=== PATIENT | female | born 1965 | race Caucasian/White ===

== ENCOUNTER 2017-05-13 12:31 | Emergency (ER) | payer OTHER ==
[~2017-05-13] VITALS: Ht 154.9 cm; Wt 122.5 kg
[2017-05-13 13:05] VITALS: BP 157/96
[2017-05-13] MEDS ORDERED: Proparacaine 0.5% Opth Soln 15ml BOTH EYES ONE (13:15)
[2017-05-13] MEDS ORDERED: Fluorescein Strips RIGHT EYE ONE (13:15)
[2017-05-13 13:40] VITALS: BP 138/89
--- NOTE | 2017-05-13 21:53 | Emergency Room Report ---
History of Present Illness General Chief Complaint: Eye Problems Source: Patient Present Illness HPI The patient is a 51-year-old female presenting for possible right eye injury. She states that she was closing a window when a metal piece struck her upper eyelid. She denies any pain at this time but is presenting for assessment. She denies any blurred vision or dizziness. She was not wearing corrective lenses. She denies any other symptoms Allergies: Coded Allergies: No Known Allergies (Unverified , 05/13/17) Patient History Past Medical History: see triage record Pertinent Family History: none Reviewed Nursing Documentation: PMH: Agreed, PSxH: Agreed Nursing Documentation-PMH Hx Hypertension: Yes Hx Asthma: Yes Review of Systems All Other Systems: negative except mentioned in HPI Physical Exam Vital Signs Date Time Temp Pulse Resp B/P (MAP) Pulse Ox O2 Delivery O2 Flow Rate FiO2 05/13/17 12:56 98.2 73 18 157/96 97 Room Air Sp02 EP Interpretation: reviewed, normal General Appearance: no apparent distress, alert, GCS 15, non-toxic Head: normocephalic, atraumatic Eyes: bilateral eye normal inspection, bilateral eye PERRL, bilateral eye EOMI ENT: hearing grossly normal, normal pharynx, no angioedema, normal voice Neck: full range of motion, supple/symm/no masses Respiratory: chest non-tender, lungs clear, normal breath sounds, speaking full sentences Cardiovascular #1: regular rate, rhythm, no edema Musculoskeletal: back normal, gait/station normal, normal range of motion, non- tender Neurologic: alert, oriented x3, responsive, motor strength/tone normal, sensory intact, speech normal Psychiatric: judgement/insight normal, memory normal, mood/affect normal, no suicidal/homicidal ideation Skin: normal color, no rash, warm/dry, well hydrated Medical Decision Making PA Attestation Dr. Hurtado is my supervising physician. Patient management was discussed with my supervising physician Diagnostic Impression: Primary Impression: Contusion, eyelid, right Qualified Codes: S00.11XA - Contusion of right eyelid and periocular area, initial encounter ER Course The patient is a 51-year-old female presenting for possible right eye injury. Differential diagnoses considered but not limited to Conjunctival abrasion, globe injury, contusion, among others PE: NAD HEENT exam: There is no abrasion to the eyelid. No edema. No ecchymosis. The globe appears intact. No hyphema. PERRL. EOMI Funduscopic exam is unremarkable. No hemorrhage is seen Proparacaine was applied to the affected eye and then fluoroscene strip was applied to bottom internal eyelid. UV light was used to assess for increased uptake. None was found. The patient will be discharged home and will followup with primary doctor. ER precautions are given Last Vital Signs Date Time Temp Pulse Resp B/P (MAP) Pulse Ox O2 Delivery O2 Flow Rate FiO2 05/13/17 13:40 84 18 138/89 99 Room Air 05/13/17 13:05 98.2 Status: improved Disposition: HOME, SELF-CARE Condition: Improved Referrals: NON PHYSICIAN (PCP) Patient Instructions: Contusion Additional Instructions: I discussed my findings with the patient. All questions and concerns have been answered. Treatment and medication compliance have been addressed. I advised the patient that they need to follow up with PMD in 3-5 days. Return to ED if symptoms worsen, new symptoms arise, or if needed for any reason. Patient verbalized understanding of discharge instructions. NYDIA VILLALOBOS May 13, 2017 21:53
== END 2017-05-13 13:46 | disposition home or self-care (01) ==
LOC: EMR 13:40
DX: S00.11XA Contusion of right eyelid and periocular area, initial encounter (principal); W22.8XXA Striking against or struck by other objects, initial encounter; Y92.9 Unspecified place or not applicable; I10 Essential (primary) hypertension; J45.909 Unspecified asthma, uncomplicated
CPT/HCPCS: 99283